=== PATIENT | male | born 1980 | race Caucasian/White ===

== ENCOUNTER 2023-06-18 08:48 | Emergency (ER) | payer OTHER, MEDICAID, SELFPAY ==
[2023-06-18 09:09] VITALS: BP 153/105; PULSE 101; RESP 16; TEMP 36.9; O2SAT 97; BMI 33.2
--- NOTE | 2023-06-18 10:00 | ED_ITS ---
HPI - Recheck/Abnormal Lab/Rx General Chief Complaint: Recheck/Abnormal Lab/Rx Stated Complaint: Cyst post op, swelling/needs repack Time Seen by Provider: 06/18/23 09:51 History of Present Illness HPI narrative: Patient 42-year-old male history of insulin-dependent diabetes hypertension presents today for wound evaluation. 4 days ago he had an I and D at another facility on his right shoulder. He is taking antibiotics, but does not remember the names. Dressing was changed they are currently on vacation they were told to have it checked and repacked while on vacation. No fever no chills pain overall feels like he is doing well. Review of Systems Review of Systems ROS Unobtainable: All systems reviewed & are unremarkable except as noted in HPI and below Patient History Social History Smoking Status: Never smoker Smoking Status: Never smoker alcohol intake frequency: 3 or more drinks per day Alcohol type: beer Substance Use Type: does not use Exam Initial Vital Signs Initial Vital Signs: Vital Signs Temperature 98.5 F 06/18/23 09:09 Pulse Rate 101 H 06/18/23 09:09 Respiratory Rate 16 06/18/23 09:09 Blood Pressure 153/105 H 06/18/23 09:09 Pulse Oximetry 97 06/18/23 09:09 Oxygen Delivery Method Room Air 06/18/23 09:09 GENERAL: Well-appearing, well-nourished and in no acute distress. CARDIOVASCULAR: peripheral pulses in tact, cap refill <2 sec RESPIRATORY: No respiratory distress, speaks in full sentences without difficulty EXTREMITIES: Normal range of motion, no clubbing or edema. Neurovascularly intact NEUROLOGICAL: Cranial nerves II through XII grossly intact. Normal gait and s peech. SKIN: Incision right scapular region no significant erythema fluctuation or drainage. Actually appears healing. Course Vital Signs Vital signs: Vital Signs - 8 hr 06/18/23 09:09 Temperature 98.5 F Pulse Rate 101 H Respiratory Rate 16 Blood Pressure 153/105 H Pulse Oximetry 97 Oxygen Delivery Method Room Air MDM - Recheck/Abnormal Lab/Rx MDM Narrative Medical decision making narrative: Patient 42-year-old male here for wound re-evaluation. Wound is repacked dressing placed by myself. They are going home tomorrow and will follow-up with primary care. No evidence of ongoing infection. It actually appears to be healing. Discharge Plan Departure Patient Disposition: Home Clinical Impression: Abscess of skin, Encounter for wound re-check Instructions: Incision and Drainage of a Skin Abscess Activity Restrictions/Additional Instructions: Your wound was repacked today and dressed. Change dressing tomorrow. It is okay if the packing falls out. Please finish your antibiotics as prescribed. Follow-up with your providers in 2-3 days. Return to any emergency department if you should have new or worsening symptoms. Stand Alone Forms: Patient Portal/API
== END 2023-06-18 10:21 | disposition home or self-care (01) ==
PROVIDERS: Emergency Provider Emergency Medicine
DX: L02.413 Cutaneous abscess of right upper limb (principal); Z48.00 Encounter for change or removal of nonsurgical wound dressing
CPT/HCPCS: 99281